=== PATIENT | male | born 1955 ===

== ENCOUNTER 2024-12-13 09:49 | Outpatient (AMB) | payer OTHER, SELFPAY ==
--- NOTE | 2024-12-13 10:03 | MHC.OFFVIS ---
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 He is a patient of . 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 Underwent adjuvant BCG therapy - therapy limited secondary to side effects Cystoscopy - 10/14 NAD, trilobar hypertrophy prostate Imaging - CT urogram 08/10 bladder lesions, upper tract normal Cytology - 09/14 atypical, Urovysion - abnormal likely preemptively change Review of Systems Const Denies chills and Denies fever(s) Card Reports no additional complaints and Denies syncope Resp Denies cough GI Denies abdominal pain and Denies heartburn Reports as per HPI and Denies change in libido Neuro Denies syncope Psych Denies change in libido Endo Denies change in libido Physical Exam Const General: cooperative, healthy appearing, comfortable and no acute distress Orientation/consciousness: patient oriented x3 HEENT Face and sinus: Yes normal facial exam Mouth: moist mucous membranes Neck Neck: Yes normal visual inspection, Yes full ROM and Yes trachea midline Chest Chest palpation & inspection: normal inspection of the chest Resp Effort & Inspection: normal respiratory effort, able to speak in complete sentences and no respiratory distress GI Inspection: Yes normal to inspection Back/Spine/Pelvis Cervical Spine: normal cervical lordosis Thoracic/Lumbar Spine: thoracic and lumbar spine normal to inspection Skin General skin exam: no rashes or lesions noted Neuro General: patient oriented x3, gait normal, tone normal and moves all extremities Extrem General: Yes normal to inspection and Yes capillary refill normal Results AMB Urinalysis, Automated UA Leukoctes 0 Daniel/uL Last Edit by OCTAVIO Wright on 12/13/24 10:28 UA Nitrite Negative Last Edit by OCTAVIO Wright on 12/13/24 10:28 UA Urobilinogen 0.2 mg/dL [facility] on 12/13/24 10:28 UA Protein 0 mg/dL Last Edit by Tammy Walsh [facility] on 12/13/24 10:28 UA pH 6.0 Last Edit by Tammy Walsh [facility] on 12/13/24 10:28 UA Blood 0 Willy/uL Last Edit by Tammy Walsh [facility] on 12/13/24 10:28 UA Specific [place] 1.015 Last Edit by Tammy Walsh [facility] on 12/13/24 10:28 UA Ketone Last Edit by Tammy Walsh [facility] on 12/13/24 10:28 UA Bilirubin 0 mg/dL Last Edit by Tammy Walsh [facility] on 12/13/24 10:28 UA Glucose 0 mg/dL Last Edit by Tammy Walsh [facility] on 12/13/24 10:28 Results Reviewed Results Reviewed: Laboratory Last Values Urine pH (Auto) 6.0 12/13/24 10:28 Specific [place] (Auto) 1.015 12/13/24 10:28 Urine Protein (Auto) 0 mg/dL 12/13/24 10:28 Glucose (UA)(Auto) 0 mg/dL 12/13/24 10:28 Urine Blood (Auto) 0 Willy/uL 12/13/24 10:28 Urine Nitrite (Auto) Negative 12/13/24 10:28 Urine Bilirubin (Auto) 0 mg/dL 12/13/24 10:28 Urine Urobilinogen (Auto) 0.2 mg/dL 12/13/24 10:28 Leukocyte Esterase (Auto) 0 Daniel/uL 12/13/24 10:28 Assessment & Plan Assessment & Plan (1) Bladder cancer: Code(s): C67.9 - Malignant neoplasm of bladder, unspecified Category: Medical Plan Repeat fish today Need CT urogram Orders: Orders FISH Bladder Cancer Today C67.9 - Malignant neoplasm of bladder, unspecified AMB Urinalysis Automated Today Z13.9 - Encounter for screening, unspecified CT urogram 6 Months C67.9 - Malignant neoplasm of bladder, unspecified Patient Instructions: This note is constructed using voice recognition software. While every effort has been made to ensure accuracy land planner errors may have been included. Imaging studies, laboratory and physical exam results were discussed and reviewed in detail. No major barriers to patient understanding were identified. An opportunity to ask questions regarding the treatment plan was provided. All questions were answered. The patient expressed understanding and agreement with the above treatment plan. The patient is aware they should contact our office by phone for worsening of their current condition or the appearance of new urologic symptoms. Compliance is encouraged with any medications and followup testing that is ordered. It is a privilege to participate in the urologic care of your patient. If you have any questions or concerns regarding treatment for the above conditions, or other urologic issues, please do not hesitate to contact me. The office telephone contact is [phone]. Sincerely, Dr Rafael Win MD, [facility] - Urology Compassionate Specialist Care for the Genitourinary System Coding Level of Care Code New Pt Level 4 (77768) Diagnoses Bladder cancer C67.9
--- OUTSIDE RECORDS SUMMARY | 2024-12-13 11:50 | XMS_ITS | Encounter Summary ---
Author Organization [employer] Address [address] [place] [address] [address] [place] [address] Care Team Providers Care Infection Control Rn Name Role Phone Unavailable Primary Care Provider Unavailabl e Encounter Details Date Type Department Care Team (Latest Contact Info) Description 06/12/2021 Abstract [facility] CONVERSIONS Dental, Provider, DDS Social History Tobacco Use Types Packs/Day Years Used Date Smoking Tobacco: Never Assessed Sex and Gender Information Value Date Recorded Sex Assigned at Male 01/20/2022 10:34 AM EDT Legal Sex Male 10:34 AM EDT Gender Identity Male 01/20/2022 10:34 AM EDT Sexual Orientation Straight 01/20/2022 10 :34 AM EDT documented as of this encounter Plan of Treatment Not on file documented as of this encounter Visit Diagnoses Not on filedocumented in this encounter
--- OUTSIDE RECORDS SUMMARY | 2024-12-13 11:50 | XMS_ITS | Clinical Summary ---
Author Organization [facility] Address [address] [place] [address] Phone Care Team Providers Care Manager Embalmer Funeral Director Name Role Phone Susan Olivarez MD Primary Care Provider [phone] Allergies Active Allergy Reactions Criticality Noted Date Comments Cat Dander 01/16/2023 Pollen Extracts 01/16/2023 Medications fexofenadine (CHENG) 60 mg tablet Take 1 tablet (60 mg total) by mouth 1 (one) time each day. 01/20/20 23 Active cholecalciferol (VITAMIN D-3) 50 mcg (2,000 unit) tablet Take 1 tablet (2,000 Units total) by mouth 1 (one) time each day. 01/13/20 23 Active ibuprofen (ADVIL,MOTRIN) 600 mg tablet Take 1 Tablet by mouth every 6 hours as needed for Pain. 07/17/19 23 Active betamethasone, augmented, (DIPROLENE-AF) 0.05 % cream Apply 3 times a day to affected area 04/17/19 23 Active triamcinolone (NASACORT) 55 mcg nasal inhaler 1 Inhaler by Nasal route daily as needed (nasal congestion/all ergies). 12/15/19 21 Active acetaminophen (TYLENOL) 325 mg tablet Take 2 tablets (650 mg total) by mouth every 8 (eight) hours if needed. 12/15/19 21 Active blood-glucose meter kit Use to check blood glucose daily as directed 07/09/19 19 Active FREESTYLE LANCETS MISC Use to check blood glucose daily 07/09/19 19 Active triamcinolone (KENALOG) 0.1 % ointment Apply twice daily x 2 weeks to thin lesions , then daily x 2 weeks, then 2-3 times a week as needed. Do not use on face, underarms, groin, breasts, or buttocks. 08/19/19 24 Active metoprolol succinate (TOPROL-XL) 50 mg 24 hr tablet Take 1 tablet (50 mg total) by mouth 1 (one) time each day. 90 each 3 09/09/19 25 026 Active losartan (COZAAR) 25 mg tabletIndications :Hyperlipidemia, unspecified,Prese nce of automatic (implantable) cardiac defibrillator Take 1 tablet (25 mg total) by mouth 1 (one) time each day. 90 each 3 09/09/19 25 026 Active atorvastatin (LIPITOR) 20 mg tablet Take 1 tablet (20 mg total) by mouth at bedtime. 90 each 3 09/09/19 25 026 Active blood sugar diagnostic (FreeStyle Lite Strips) test strip Use as instructed 100 each 1 12/08/19 25 Active blood sugar diagnostic (FreeStyle Lite Strips) test strip Use to check blood glucose once daily 07/29/19 20 025 Discontin ued(Reord er) Active Problems Problem Noted Date Diagnosed Date Pacer at end of battery life 03/03/2024 Dyslipidemia 01/25/2024 Assessment & Plan (03/01/2024 11:11 AM EST): Very well-controlled lipid profile on current dose statin with diabetes. Continue lipitor at current dose. COVID-19 05/29/2022 Overview (01/25/2024): 05/12/22 ([facility] ER) HFrEF (heart failure with re duced ejection fraction) ([facility]/HCC V24, CMS/HCC V28) 01/30/2022 Overview (03/01/2024): Nonischemic cardiomyopathy Normal pharmacologic nuclear stress test 03/2015 Persistently reduced LVEF despite GDMT [facility] BiV ICD with recovery of LVEF back to normal Assessment & Plan (03/01/2024 11:10 AM EST): The patient denies cardiorespiratory symptoms. His thoracic impedance is on continues on a a relative downward trend, but he denies any symptoms. As such, will not make any adjustments to his medications at this time. Consideration could be given for transitioning his ARB to Arni inhibitor if his thoracic impedance continues on the lower side. For now though, continue beta-nalini and ARB. His device has reached SUSY. As such, he will be scheduled for a routine generator change. This procedure is discussed with the patient and his with the use of the butcher helper. All questions have been answered. Risks/benefits/alternatives discussed including but not limited to infection, pain, and bleeding. Patient understands and agrees and wishes to proceed with generator change. Patient scheduled for pre-procedure labs and chest x ray as per protocol. Discussed with patient that the leads will be evaluated at the time of generator change. If needed, they may be changed or revised. If clinically appropriate, their device may be upgraded as well. They understand for any procedure beyond a generator change of their current device, they will remain in the hospital overnight. He plans to travel to [place] to see his daughter after the new year. I have asked that he travel after he has his device generator change and his first in office check. The patient and his understand and agree. I spoke to the scheduling team to try to work him in as quickly as reasonably possible so as not to delay his travel BPH (benign prostatic hyperplasia) 10/19/2020 Congenital renal cyst 10/19/2020 Bladder cancer ([facility] V24, [facility] V28) 2020 Overview (01/25/2024): DX 08/2020, restage bx09/2020 [facility] Nocturnal hypoxemia 05/24/2020 Nasal congestion 04/09/2020 Diet-controlled diabetes yaz litus ([facility] V24, [facility] V28) 02/27/2020 Obstructive sleep apnea 04/29/2019 Overview (01/25/2024): [facility] Polysomnogram: Date 04/24/2019; Wt 175#; BMI 30; SE 66%; SM 62%; REM 3%; RDI 57 (AHI 46), REM (RDI 96 - AHI 88), Central apneas 0; Obstructive apneas 5; Mixed apneas 0; hypopneas 205; RERAs 53; average oxygen saturation 93% (lowest 83% - with some saturations <88% for 5% or more of study); PLMs 18. Prestudy ESS 9; 0/4 RLS symptoms. - Obstructive Sleep Apnea - severe; mostly hypopneas; with some sleep related hypoventilation by 2019 polysomnogram. 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 Triamcinolone cream has proven ineffective. Patient will follow-up with dermatology on May 06, as already scheduled. I advise he apply a dry nonadherent to the area. I did not see any surrounding cellulitis and therefore antibiotic therapy is not indicated at this time. Discussed signs or symptoms that warrant immediate reevaluation. He was asked to call with questions or concerns. He voiced understanding and agree with the above plan. Resolved Problems Problem Noted Date Diagnosed Date Resolved Date Nonischemic cardiomyopathy ( [facility] V24, [facility] V28) 07/20/2015 03/01/2024 Encounters Date Type Department Care Team Description 11/11/2024 5:35 PM EDT Ancillary Procedure [facility] Cardiology [facility] [address] [place] [address] 10/19/2024 7:30 PM EDT Ancillary Procedure [facility] [address] [place] [address] 09/12/2024 1:30 PM EDT Ancillary Procedure [facility] [address] [place] [address] from Last 3 Months Immunizations Name Administration Dates Next Due Influenza Quadravalent, MDCK , 0.5ml, with preservative (Flucelvax) 6mo and older 03/20/2017 Influenza trivalent, 0.5mL ( Fluad) 65yo and older 12/14/2020,01/05/2020,01/19/2019 Influenza trivalent, 0.5mL, preservative free (Fluarix; FluLaval; Fluzone) ages 6mo and older (Afluria) 3 years and older 01/10/2015,01/02/2014 Pneumococcal polysaccharide 23 valent (Pneumovax 23) 2yo and older 02/08/2016 Zoster Live 08/13/2016 Surgical History Surgery Date Site/Laterality Comments VASECTOMY PROCEDURE: HISTORICAL VASECTOMY Medical History Medical History Date Comments Dyslipidemia DX:Dyslipidemia Knee pain DX:Knee pain Postprandial abdominal bloating 05/28/2015 DX:Postprandial abdominal bloating History of tobacco use DX:Histor y of tobacco use; COMMENT: <5 yrs Microscopic hematuria DX:Microsc opic hematuria Prostate nodule DX:Prostate nodu le; COMMENT: dr grissom Newly diagnosed diabetes ([facility]/HCC V24, CMS/HCC V28) DX:Newly diagnosed diabetes (HCC) Abnormal CT scan, bladder 08/16/2020 DX:Abn ormal CT scan, bladder; COMMENT: [facility] Bladder tumor DX:Bladder tumor BPH (benign prostatic hyperplasia) 10/19/2020 DX:BPH (benign prostatic hyperplasia) Congenital renal cyst 10/19/2020 DX:Congeni vy renal cyst Family History Medical History Relation Name Comments Coronary artery disease Brother 1 Other: pulmonary tuberculosis Mother Autoimmune disease Neg Hx Breast cancer Neg Hx Colon cancer Neg Hx Diabetes Neg Hx Heart attack Neg Hx Heart failure Neg Hx Hyperlipidemia Neg Hx Hypertension Neg Hx Mental illness Neg Hx Prostate cancer Neg Hx Sleep apnea Neg Hx Thyroid disease Neg Hx Relation Name Status Comments Brother 1 Brother 2 Mother Social History Tobacco Use Types Packs/Day Years Used Date Smoking Tobacco: Former Cigarettes Q uit: 03/23/1984 Smokeless Tobacco: Never Alcohol Use Standard Drinks/Week Comments Yes 0 (1 standard drink = 0.6 oz pur e alcohol) occasional Sex and Gender Information Value Date Recorded Sex Assigned at Male 04/08/2024 7:50 AM EST Legal Sex Male 12:16 PM EST Gender Identity Male 04/08/2024 7:50 AM EST Sexual Orientation Straight 04/08/2024 7: 50 AM EST Obstetrics History Last Filed Vital Signs Vital Sign Reading Time Taken Comments Blood Pressure 140/82 09/08/2024 11:02 AM EDT Pulse 60 09/08/2024 11:02 AM EDT Temperature 36.6 C (97.8 F) 08/02/2024 10:59 AM EDT Respiratory Rate 14 08/02/2024 10:59 AM EDT Oxygen Saturation 97% 09/08/2024 11:02 AM EDT Inhaled Oxygen Concentration - - Weight 73 kg (161 lb) 08/02/2024 10:59 AM EDT Height 162.6 cm (5' 4 ) 08/02/2024 10:59 AM EDT Body Mass Index 27.64 08/02/2024 10:59 AM EDT Plan of Treatment Upcoming Encounters Date Type Department Care Team ([facility] st Contact Info) Description 02/23/2025 1:00 PM EST Office Visit Adult Medicine [facility] [address] [place] [address] Susan Olivarez MD [address] [place] [address] 04/25/2025 11:00 AM EST Ancillary Procedure [facility] Cardiology [facility] [address] [facility] [address] [place] [address] 09/06/2025 10:00 AM EDT Ancillary Procedure [facility] Cardiology [facility] [address] [facility] [address] [place] [address] Health Maintenance Due Date Last Done Comments Diabetes: Annual Foot Exam 10/27/1963 Diabetes: Annual Retina Eye Exam 10/27/1963 DTaP,Tdap,and Td Vaccines (1 - Tdap) 1972 RSV Immunization Adult Patients (1 - Risk 60-74 years 1-dose series) 2013 Zoster Vaccines (1 of 2) 10/08/2016 08/13/2016 Pneumococcal Vaccine: 50+ Years (2 of 2 - PCV) 02/07/2017 02/08/2016 Colorectal Cancer Screening: Colonoscopy 03/01/2022 Falls Risk Assessment 03/01/2022 Social Influencers of Health Screening 03/01/2022 Diabetes: Annual Urine Albumin-Creatinine Ratio (uACR) 01/13/2024 01/12/2023 Depression Screening 03/23/2024 COVID-19 Vaccine ( season) 2024 03/30/2021, 07/20/2020, 06/23/2020 Influenza Vaccine (#1) 2024 , 01/05/2020, 01/19/2019, Additional history exists Diabetes: Blood Sugar Control Test (HGBA1C) 02/02/2025 08/02/2024, 02/17/2023 Diabetes: Annual GFR (Glomerular Filtration Rate) 08/02/2025 08/02/2024, 03/28/2024, 02/22/2024, Additional history exists Hypertension/CHF/CAD Annual BMP Blood Test 08/02/2025 08/02/2024, 03/28/2024, 02/22/2024, Additional history exists Cholesterol Screening (Lipid Panel) 08/02/2029 08/02/2024, 11/07/2022 Hepatitis C Screening Completed 09/20/2013 Abdominal Aortic Aneurysm (AAA) Screen Completed 03/07/2019 HIB Vaccines Aged Out No longer eligi ble based on patient's age to complete this topic HPV Vaccines Aged Out No longer eligi ble based on patient's age to complete this topic Hepatitis A Vaccines Aged Out No long er eligible based on patient's age to complete this topic Hepatitis B Vaccines Aged Out No long er eligible based on patient's age to complete this topic IPV Vaccines Aged Out No longer eligi ble based on patient's age to complete this topic MMR Vaccines Aged Out No longer eligi ble based on patient's age to complete this topic Meningococcal ACWY Vaccine Aged Out N o longer eligible based on patient's age to complete this topic Meningococcal B Vaccine Aged Out No l onger eligible based on patient's age to complete this topic RSV Immunization Patients Under 20 months Aged Out No longer eligible based on patient's age to complete this topic Varicella Vaccines Aged Out No longer eligible based on patient's age to complete this topic Medical Devices Implanted Type Area Parts Expediter Device Identifier Shelf Expiration Date Model / Serial / Lot Abbt-Stju [id number] [place] Mp() [id number] Implanted:01/21 (Quantity not on file) Cardiac CHIEF CONTROLLER TOWER-D ICD [facility] [id number] QUADRA ASSURA MP(TM) / [id number] / Defib Icd Bi Vent Driscoll Hr Digital Strategist D - [id number] - [id number] Implanted:Qty: 1 on 04/08/2024 by Mary Mehta MD at [facility] Cardiac CHIEF CONTROLLER TOWER-D ICD Left: Chest Wall [facility] [id number] 09/19/2025 [id number] / [id number] / Abbt-Stju Driscoll Hf [id number] Implanted:03/23 (Quantity not on file) Cardiac CHIEF CONTROLLER TOWER-D ICD [facility] GALLANT HF [id number] / [id number] / Abbt-Stju [id number] Driscoll(Tm) Hf [id number] Implanted:03/23 (Quantity not on file) Cardiac CHIEF CONTROLLER TOWER-D ICD [facility] [id number] GALLANT(T M) HF / [id number] / Procedures Procedure Name Priority Date/Time Associated Diagnosis Comments CARDIAC DEVICE CHECK- REMOTE- MURJ Routine 11/11/2024 5:32 PM EDT CARDIAC DEVICE CHECK- REMOTE- MURJ Routine 10/19/2024 7:27 PM EDT CARDIAC DEVICE CHECK- REMOTE- MURJ Routine 09/12/2024 1:26 PM EDT COMPREHENSIVE METABOLIC PANEL Routine 08/02/2024 11:53 AM EDT Diet-controlled diabetes mellitus (CMS/HCC V24, CMS/HCC V28) Malignant neoplasm of urinary bladder, unspecified site (CMS/HCC V24, CMS/HCC V28) HEMOGLOBIN A1C Routine 08/02/2024 11:53 AM EDT Mycosis fungoides, unspecified body region (CMS/HCC V24, CMS/HCC V28) Diet-controlled diabetes mellitus (CMS/HCC V24, CMS/HCC V28) Malignant neoplasm of urinary bladder, unspecified site (CMS/HCC V24, CMS/HCC V28) LIPID PANEL WITH REFLEX TO DIRECT LDL Routine 08/02/2024 11:53 AM EDT Diet-controlled diabetes mellitus (CMS/HCC V24, CMS/HCC V28) Malignant neoplasm of urinary bladder, unspecified site (CMS/HCC V24, CMS/HCC V28) HM URINE ALBUMIN CREATININE RATIO Routine 01/12/2023 US ABDOMINAL AORTA REAL TIME SCREEN STUDY AAA Routine 03/07/2019 8:18 AM EST Personal history of nicotine dependence HM HEPATITIS C SCREENING Routine 09/20/2013 from Last 3 Months or Most Recently Relevant to Health Maintenance Results * Cardiac device check - Remote- MURJ (11/11/2024 5:32 PM EDT) Only the most recent of3 resultswithin the time period is included. Date Time Interrogation Session [id number] CV DEVICE CHECK Type Interrogation Session Remote Scheduled CV DEVICE CHECK Implantable Pulse Generator Parts Expediter [facility] CV DEVICE CHECK Implantable Pulse Generator Type CHIEF CONTROLLER TOWER-D CV DEVICE CHECK Implantable Pulse Generator Model [id number] Driscoll(TM) HF CV DEVICE CHECK Implantable Pulse Generator Serial Number [id number] CV DEVICE CHECK Implantable Pulse Generator Implant Date [id number] CV DEVICE CHECK Battery Remaining Percentage 90.00 CV DEVICE CHECK Battery Remaining Longevity 84.0 CV DEVICE CHECK Battery Voltage 2.990 CV D EVICE CHECK Battery RETAIL MAINTENANCE TECHNICIAN Trigger 2.620 CV DEVICE CHECK Battery Status Middle of Service CV DEVICE CHECK Capacitor Charge Time 9.000 CV DEVICE CHECK Ray Statistic RA Percent Paced 20.00 CV DEVICE CHECK Ray Statistic RV Percent Paced 96.00 CV DEVICE CHECK CHIEF CONTROLLER TOWER Statistic CHIEF CONTROLLER TOWER Percent Paced 96.00 CV DEVICE CHECK Atrial Tachy Statistic AT/AF [place] Percent 1.00 CV DEVICE CHECK Lead Channel Sensing Intrinsic Amplitude 3.500 CV DEVICE CHECK Lead Channel Setting Sensing Sensitivity 0.30 CV DEVICE CHECK Lead Channel Impedance Value 360 CV DEVICE CHECK Lead Channel Pacing Threshold Amplitude 0.375 CV DEVICE CHECK Lead Channel Pacing Threshold Pulse Width 0.5 CV DEVICE CHECK Lead Channel RA Pacing Threshold Date 2024-11-11 CV DEVICE CHECK Lead Channel Setting Pacing Amplitude 1.375 CV DEVICE CHECK Lead Channel Setting Pacing Pulse Width 0.5 CV DEVICE CHECK Lead Channel Sensing Intrinsic Amplitude 5.300 CV DEVICE CHECK Lead Channel Setting Sensing Sensitivity 0.30 CV DEVICE CHECK Lead Channel Impedance Value 390 CV DEVICE CHECK Lead Channel Pacing Threshold Amplitude 1.125 CV DEVICE CHECK Lead Channel Pacing Threshold Pulse Width 0.5 CV DEVICE CHECK Lead Channel RV Pacing Threshold Date 2024-11-11 CV DEVICE CHECK Lead Channel Setting Pacing Amplitude 2.125 CV DEVICE CHECK Lead Channel Setting Pacing Pulse Width 0.5 CV DEVICE CHECK Lead Channel Impedance Value 860 CV DEVICE CHECK Lead Channel Pacing Threshold Amplitude 0.875 CV DEVICE CHECK Lead Channel Pacing Threshold Pulse Width 1.0 CV DEVICE CHECK Lead Channel Pacing Threshold Date 2024-11-11 CV DEVICE CHECK Lead Channel Setting Pacing Amplitude 1.375 CV DEVICE CHECK Lead Channel Setting Pacing Pulse Width 1.0 CV DEVICE CHECK Ray Setting Mode (NBG Code) DDDR CV DEVICE CHECK Ventricular chambers paced during CHIEF CONTROLLER TOWER pacing. BiV CV DEVICE CHECK Ray Setting Lower Rate Limit 60 CV DEVICE CHECK Ray Setting AT Mode Switch Rate 180 CV DEVICE CHECK Ray Setting Maximum Tracking Rate 120 CV DEVICE CHECK Ray Setting Maximum Sensor Rate 120 CV DEVICE CHECK Ray Setting PAV Delay 150 CV DEVICE CHECK Ray Setting SHAYY Delay 120 CV DEVICE CHECK CHIEF CONTROLLER TOWER LV-RV Delay 30 CV D EVICE CHECK Therapy Statistic Recent Shocks Delivered 0 CV DEVICE CHECK Therapy Statistic Recent Shocks Aborted 0 CV DEVICE CHECK Therapy Statistic Recent ATP Delivered 0 CV DEVICE CHECK Shock Measured Impedance 59 CV DEVICE CHECK Zone Setting Type Category VT CV DEVICE CHECK Rate 160 CV DEVICE CHECK Zone Setting Status On CV DEVICE CHECK Zone ID 1 CV DEVICE CHECK Zone Setting Type Category VT CV DEVICE CHECK Zone Setting Status Inactive CV DEVICE CHECK Zone ID 2 CV DEVICE CHECK Zone Setting Type Category VF CV DEVICE CHECK Rate 200 CV DEVICE CHECK Therapies 34.0J,37.8J,37.8J x 4 CV DEVICE CHECK Zone Setting Status On CV DEVICE CHECK Zone ID 3 CV DEVICE CHECK Date of Service 2024-12-05 CV DEVICE CHECK Anatomical Region Laterality Modality Device Interroga tion 11/11/2024 2:08 AM EDT Impressions 11/11/2024 5:09 PM EDT Heart Failure Diagnostic: Stable * Heart failure diagnostics assessed through the device * Status: Stable * No overt HF present Narrative Procedure Note Mary Mehta MD - 11/11/2024 IMPRESSION: Heart Failure Diagnostic: Stable * Heart failure diagnostics assessed through the device * Status: Stable * No overt HF present Mary Mehta MD CV IMPLANTABLE CARDIAC DEV ICE PROCEDURES Final Result * Lipid panel with reflex to direct LDL (08/02/2024 11:53 AM EDT) Cholesterol 164 0 - 200 mg/dL LAB CHEMISTRY METHOD 08/02/2024 4:14 PM EDT [facility] Triglycerides 118 0 - 150 mg/dL LAB CHEMISTRY METHOD 08/02/2024 4:14 PM EDT [facility] HDL 40 >=40 mg/dL LAB CHEMISTRY METHOD 08/02/2024 4:14 PM EDT [facility] LDL Calculated 100 0 - 100 mg/dL LAB CHEMISTRY METHOD 08/02/2024 4:14 PM EDT [facility] VLDL Cholesterol Rush 23.6 mg/dL LAB CHEMISTRY METHOD 08/02/2024 4:14 PM EDT [facility] Non HDL Chol. (LDL+VLDL) 124 <145 mg/dL LAB CHEMISTRY METHOD 08/02/2024 4:14 PM EDT [facility] Chol/HDL Ratio 4.1 0.0 - 4.4 LAB CHEMISTRY METHOD 08/02/2024 4:14 PM T [facility] Blood Venous blood specimen / Unknown Venipuncture / Unknown 08/02/2024 11:53 AM EDT 08/02/2024 11:53 AM EDT us Slick ZIMMERMAN LAB BLOOD ORDERABLES Fin al Result [facility] [address] [place] [address], [place] [phone] * Hemoglobin A1c (08/02/2024 11:53 AM EDT) Hemoglobin A1C 6.0 <6.5 % LAB CHEMISTRY METHOD 08/02/2024 10:[address] [facility] Mean Bld Glu Estim. 126 mg/dL LAB CHEMISTRY METHOD 08/02/2024 10:[address] [facility] Blood Venous blood specimen / Unknown Venipuncture / Unknown 08/02/2024 11:53 AM EDT 08/02/2024 11:53 AM EDT us Slick ZIMMERMAN LAB BLOOD ORDERABLES Fin al Result [facility] [address] [place] [address], * Comprehensive metabolic panel (08/02/2024 11:53 AM EDT) Sodium 140 133 - 145 mmol/L LAB CHEMISTRY METHOD 08/02/2024 4:[address] [facility] Potassium 4.2 3.5 - 5.5 mmol/L LAB CHEMISTRY METHOD 08/02/2024 4:[address] [facility] Chloride 105 96 - 110 mmol/L LAB CHEMISTRY METHOD 08/02/2024 4:[address] [facility] CO2 28 21 - 32 mmol/L LAB CHEMISTRY METHOD 08/02/2024 4:[address] [facility] Anion Gap 7 3 - 11 LAB CHEMISTRY METHOD 08/02/2024 4:[address] [facility] Glucose 81 70 - 100 mg/dL LAB CHEMISTRY METHOD 08/02/2024 4:[address] [facility] BUN 17 5 - 25 mg/dL LAB CHEMISTRY METHOD 08/02/2024 4:[address] [facility] Creatinine 0.87 0.70 - 1.30 mg/dL LAB CHEMISTRY METHOD 08/02/2024 4:[address] [facility] eGFR 93 >=60 mL/min/1. 73m2 LAB CHEMISTRY METHOD 08/02/2024 4:[address] [facility] Comment:Calculation based on the Chronic Kidney Disease Epidemiology Collaboration (CKD-EPI) equation refit without adjustment for race. BUN/Creatinine Ratio 19.5 LAB CHEMISTRY METHOD 08/02/2024 4:[address] [facility] Calcium 9.4 8.5 - 10.5 mg/dL LAB CHEMISTRY METHOD 08/02/2024 4:[address] [facility] AST (SGOT) 27 10 - 42 unit/L LAB CHEMISTRY METHOD 08/02/2024 4:[address] [facility] ALT (SGPT) 28 10 - 60 unit/L LAB CHEMISTRY METHOD 08/02/2024 4:[address] [facility] Alkaline Phosphatase 79 42 - 121 unit/L LAB CHEMISTRY METHOD 08/02/2024 4:[address] [facility] Total Protein 7.5 6.0 - 8.0 g/dL LAB CHEMISTRY METHOD 08/02/2024 4:[address] [facility] Albumin 4.3 3.2 - 5.0 g/dL LAB CHEMISTRY METHOD 08/02/2024 4:[address] [facility] Total Bilirubin 0.9 0.0 - 1.4 mg/dL LAB CHEMISTRY METHOD 08/02/2024 4:[address] [facility] Blood Venous blood specimen / Unknown Venipuncture / Unknown 08/02/2024 11:53 AM EDT 08/02/2024 11:53 AM EDT us Slick ZIMMERMAN LAB BLOOD ORDERABLES Fin al Result [facility] [address] [place] [address], * Urine Albumin Creatinine Ratio (01/12/2023) Urine Albumin Creatinine Ratio abstracted Historical Provider HEALTH MAINTENANCE Final Result * ABDOMINAL AORTA REAL TIME SCREEN STUDY AAA (03/07/2019 8:18 AM EST) Anatomical Region Laterality Modality Ultrasound 02/28/2019 11:4 1 AM EST Narrative 03/07/2019 8:28 AM EST EXAM: Abdominal aorta ultrasound, AAA screening HISTORY: History of tobacco use. AAA screening. COMPARISON: None FINDINGS: Proximal aorta measures 2.3 cm in maximal diameter. Mid aorta measures 1.8 cm. Distal aorta measures 1.6 cm. Proximal right common iliac artery measures 1 cm. Proximal left common iliac artery measures 0.9 cm. Minimal echogenicities along the vascular winters from atherosclerotic disease. IMPRESSION: IMPRESSION: No evidence of an abdominal aortic aneurysm. Procedure Note Juliet Gaming MD - 03/11/2022 EXAM: Abdominal aorta ultrasound, AAA screening HISTORY: History of tobacco use. AAA screening. COMPARISON: None FINDINGS: Proximal aorta measures 2.3 cm in maximal diameter. Mid aortameasures 1.8 cm. Distal aorta measures 1.6 cm. Proximal right common iliac artery measures1 cm. Proximal left common iliac artery measures 0.9 cm. Minimal echogenicities along thevascular winters from atherosclerotic disease. IMPRESSION: IMPRESSION: No evidence of an abdominal aortic aneurysm. 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 Expl anation Power of Applied Computer Science Professor 04/08/2024 7:54 AM hcp Advance Directives and Living Will 04/08/2024 7:54 AM life Health Care Decision (hx) 02/08/2016 AD GUERRA DIRECTIVE Health Care Decision (hx) 02/08/2016 AD GUERRA DIRECTIVE Health Care Decision (hx) 02/08/2016 AD GUERRA DIRECTIVE Health Care Decision (hx) 02/08/2016 AD GUERRA DIRECTIVE Health Care Decision (hx) 02/08/2016 AD GUERRA DIRECTIVE Health Care Decision (hx) 02/08/2016 AD GUERRA DIRECTIVE Health Care Decision (hx) 02/08/2016 AD GUERRA DIRECTIVE Health Care Decision (hx) 02/08/2016 AD GUERRA DIRECTIVE Health Care Decision (hx) 02/08/2016 AD GUERRA DIRECTIVE Health Care Decision (hx) 02/08/2016 AD GUERRA DIRECTIVE Health Care Decision (hx) 02/08/2016 AD GUERRA DIRECTIVE Health Care Decision (hx) 02/08/2016 AD GUERRA DIRECTIVE Health Care Decision (hx) 02/08/2016 AD GUERRA DIRECTIVE Health Care Decision (hx) 02/08/2016 AD GUERRA DIRECTIVE Care Teams Manager Embalmer Funeral Director Relationship Specialty Start Date End Date Susan Olivarez MD [address] [place] [address] PCP - General Internal Medicine 01/24/21
--- OUTSIDE RECORDS SUMMARY | 2024-12-13 11:50 | XMS_ITS | Clinical Summary ---
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 Avoid eyes and areas with thin skin (e.g. face, genitals, armpits) 454 g 3 0 Active Social History Tobacco Use Types Packs/Day Years Used Date Smoking Tobacco: Never Assessed Education Answer Date Recorded Are you interested in more education? Not on elza e 07/18/2022 Are you concerned about learning? Not on file 07/18/2022 No 07/18/2022 No 07/18/2022 Digital Access Answer Date Recorded No 08/16/2022 No 08/16/2022 No 08/16/2022 Reliable internet access at home? Not on file 08/16/2022 Device with a working camera? Not on file Sex and Gender Information Value Date Recorded Sex Assigned at Not on file Legal Sex Male 2:06 PM EST Gender Identity Not on file Sexual Orientation Not on file Last Filed Vital Signs Vital Sign Reading Time Taken Comments Blood Pressure 143/71 12/26/2019 7:28 AM EDT Pulse 60 12/26/2019 7:28 AM EDT Temperature 36.4 C (97.6 F) 12/26/2019 7:28 AM EDT Respiratory Rate 18 12/26/2019 7:28 AM EDT Oxygen Saturation - - Inhaled Oxygen Concentration - - Weight 80.3 kg (177 lb 0.5 oz) 12/26/2019 7:28 A M EDT Height 160.2 cm (5' 3.07 ) 12/26/2019 7:28 AM ED T Body Mass Index 31.29 12/26/2019 7:28 AM EDT Plan of Treatment Health Maintenance Due Date Last Done Comments Adult Td,Tdap Booster 1953 DEPRESSION SCREENING 1965 SMOKING Hx and SMOKELESS TOBACCO SCREENING 1966 HEPATITIS C SCREENING 10/27/1971 COLOGUARD 1998 COLONOSCOPY 1998 COLORECTAL CANCER SCREENING 1998 FIT TEST 1998 FOBT 1998 SIGMOIDOSCOPY 1998 VIRTUAL COLONOSCOPY 1998 ZOSTER VACCINES (2 of 3) 10/08/2016 08/13/2016 PNEUMOCOCCAL VACCINES (50+ years) (2 of 2 - PCV) 02/08/2017 02/09/2016 INFLUENZA VACCINE (#1) 2024 0, 01/19/2019, 03/20/2017, Additional history exists LIPID PANEL 11/17/2024 11/18/2019 COVID-19 VACCINE (3 - 2024- season) 2024 07/20/2020, 06/23/2020 RSV VACCINE (1 - 1-dose 75+ series) 2028 HEPATITIS A VACCINES Aged Out No long er eligible based on patient's age to complete this topic HIB VACCINES Aged Out No longer eligi ble based on patient's age to complete this topic MENINGOCOCCAL VACCINES (ACWY) Aged Out No longer eligible based on patient's age to complete this topic MENINGOCOCCAL VACCINES (B) Aged Out N o longer eligible based on patient's age to complete this topic Medical Devices Not on file Insurance [facility] [employer] MEDICARE REPLACEMENT [facility] MEDICARE REPLACEMENT [facility] MEDICARE [facility]PLACEMENT [facility] MEDICARE REPLACEMENT [facility] MEDICARE REPLACEMENT [facility] MEDICARE REPLACEMENT [facility] MEDICARE REPLACEMENT [facility] MEDICARE REPLACEMENT [facility] MEDICARE REPLACEMENT Care Teams Vineyard Worker Relationship Specialty Start Date End Date Nola Wills DO [address] [place] [address] PCP - General Internal Medicine 05/16/19 Additional Source Comments The information contained in this document represents components of the legal health record. It is not the complete legal health record.[facility]
--- OUTSIDE RECORDS SUMMARY | 2024-12-13 11:50 | XMS_ITS | Clinical Summary ---
Author Organization [employer] Address [address] [place] [address] [address] [place] [address] Care Team Providers Care Tutoring Assistant Name Role Phone Unavailable Primary Care Provider Unavailabl e Allergies No known active allergies Medications atorvastatin (Lipitor) 10 MG tablet Active metoprolol succinate XL (Toprol-XL) 25 MG 24 hr tablet Take 1 tablet by mouth at bed time. Active metoprolol tartrate (Lopressor) 50 MG tablet 03/03/2022 Active loratadine (Claritin) 10 MG tablet Take 1 tablet by mouth if needed each day. 12/14/2020 Active naproxen (Naprosyn) 250 MG tablet Active Social History Tobacco Use Types Packs/Day Years Used Date Smoking Tobacco: Former Cigarettes Passive Smoke Exposure: Past Smokeless Tobacco: Never Tobacco Cessation:Counseling Given: Not Answered Alcohol Use Standard Drinks/Week Comments Defer 0 (1 standard drink = 0.6 oz pur e alcohol) Sex and Gender Information Value Date Recorded Sex Assigned at Male 01/20/2022 10:34 AM EDT Legal Sex Male 10:34 AM EDT Gender Identity Male 01/20/2022 10:34 AM EDT Sexual Orientation Straight 01/20/2022 10 :34 AM EDT Last Filed Vital Signs Vital Sign Reading Time Taken Comments Blood Pressure 126/84 03/26/2022 9:26 AM EST Pulse 78 03/26/2022 9:26 AM EST Temperature - - Respiratory Rate - - Oxygen Saturation - - Inhaled Oxygen Concentration - - Weight - - Height - - Body Mass Index - - Plan of Treatment Health Maintenance Due Date Last Done Comments Anal Pap 1953 CT Colonography 1953 Colonoscopy 1953 Colorectal Cancer Screening 1953 Dental Oral Exam 1953 Dental X-Ray: Bitewings 1953 Dental X-Ray: Full Mouth 1953 Depression Screening 1953 FIT DNA/Cologuard 1953 FIT 1953 FOBT 1953 Lipid Panel 1953 SDOH Screening 1953 Sigmoidoscopy 1953 Alcohol/Substance Use Screening 1965 Hepatitis C Screening 10/27/1971 DTaP/Tdap/Td Vaccines (1 - Tdap) 1972 Hepatitis A Vaccines (1 of 2 - Risk 2-dose series) 1972 Hepatitis B Vaccines (1 of 3 - Risk 3-dose series) 2013 RSV Patients and Patients Aged 60 years or older (1 - Risk 60-74 years 1-dose series) 2013 Zoster Vaccines (1 of 2) 10/08/2016 08/13/2016 Pneumococcal Vaccine: 50+ Years (2 of 2 - PCV) 02/08/2017 02/09/2016 Dental Prophylaxis 09/24/2022 03/26/2022 Tobacco Screening 03/26/2023 03/26/2022 COVID-19 Vaccine ( season) 2024 03/30/2021, 07/20/2020, 06/23/2020 Influenza Vaccine (#1) 2024 , 01/05/2020, 01/19/2019, Additional history exists HIB Vaccines Aged Out No longer eligi [...] patient's age to complete this topic Meningococcal Vaccine Aged Out No lux yu eligible based on patient's age to complete this topic RSV under 20 months Aged Out No longe r eligible based on patient's age to complete this topic Rotavirus Vaccines Aged Out No longer eligible based on patient's age to complete this topic Procedures Procedure Name Priority Date/Time Associated Diagnosis Comments PROPHYLAXIS - ADULT Routine 03/26/2022 9:00 AM EST from Last 3 Months or Most Recently Relevant to Health Maintenance Insurance
--- OUTSIDE RECORDS SUMMARY | 2024-12-13 11:50 | XMS_ITS | Continuity of Care Document ---
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 Telephone [facility] [address] [place] [phone] Ecological Modeler: Jessica Monk Telephone Intake, Staff cs- appt 04/03/2017 Abstract [facility] Historical Conversion [address] [place] [address] Provider, Historical Conversion 04/02/2017 Abstract [facility] Historical Conversion [address] [place] [address] Provider, Historical Conversion Allergies Active Allergy Reactions Criticality Noted Date Comments Cat Dander Rhinorrhea 01/16/2023 Pollen Extracts Rhinorrhea 01/16/2023 Medications acetaminophen (TYLENOL) 500 mg tablet SMARTSI Tablet(s) By Mouth Every 4-6 Hours PRN 3 Active atorvastatin (LIPITOR) 20 mg tablet Take 1 tablet by mouth nightly. 4 Active Vitamin D3 50 mcg (2,000 unit) tablet SMARTSI Tablet(s) By Mouth Daily Active clobetasoL (TEMOVATE) 0.05% cream PLEASE SEE ATTACHED FOR DETAILED DIRECTIONS 4 Active clotrimazole (LOTRIMIN) 1% cream SMARTSIG:Topica l Twice Daily 4 Active levocetirizine (XYZAL) 5 mg tablet SMARTSI Tablet(s) By Mouth Daily 3 Active losartan (COZAAR) 25 mg tablet SMARTSI Tablet(s) By Mouth Daily Active metoprolol succinate XL (TOPROL XL) 50 mg tablet Take 1 tablet by mouth once a day. 4 Active mometasone (ELOCON) 0.1% cream Mometasone Furoate 0.1 % External Cream Quantity: 45; Refills: 0 Started 11-Jul-2015 Active 6 Active mupirocin (BACTROBAN) 2% ointment Apply topically to the affected area. 4 Active clobetasoL (TEMOVATE) 0.05% ointmentIndicati ons:Cutaneous T-cell lymphoma, unspecified body region (HCC) Apply twice daily x 2 weeks to thick lesions , then daily x 2 weeks, then 2-3 times a week as needed. Do not use on face, underarms, groin, breasts, or buttocks. 60 g 2 4 Active triamcinolone acetonide (KENALOG) 0.1% ointmentIndicati ons:Cutaneous T-cell lymphoma, unspecified body region (HCC) Apply twice daily x 2 weeks to thin lesions , then daily x 2 weeks, then 2-3 times a week as needed. Do not use on face, underarms, groin, breasts, or buttocks. 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 Family History Medical History Relation Name Comments Other Father Family History of hypertension Other Mother Family History of emphysema Relation Name Status Comments Father Mother Social History Smoking Status as of 12/13/2024 Tobacco Use Types Packs/Day Years Used Date Smoking Tobacco: Never Assessed Sex and Gender Information Value Date Recorded Sex Assigned at Not on file Legal Sex Male 3:37 AM EDT Gender Identity Not on file Sexual Orientation Not on file Last Filed Vital Signs Vital Sign Reading Time Taken Comments Blood Pressure 130/80 11/10/2013 10:21 AM EDT Pulse - - Temperature - - Respiratory Rate - - Oxygen Saturation - - Inhaled Oxygen Concentration - - Weight 84.4 kg (186 lb) 05/17/2015 10:17 AM EST Height 160 cm (5' 3 ) 10/31/2014 10:01 AM EDT Body Mass Index 32.95 10/31/2014 10:01 AM EDT Plan of Treatment Not on file Procedures * Due to [place] [employer] law, this organization might not be sharing negative HIV tests. Procedure Name Priority Date/Time Associated Diagnosis Comments LIPID PANEL W/REFLEX TO DIRECT LDL Routine 11/10/2013 11:11 AM EDT HEPATIC FUNCTION PANEL Routine 11/10/2013 11:11 AM EDT CBC Routine 11/10/2013 11:11 AM EDT Results * Due to [place] [employer] law, this organization might not be sharing negative HIV tests. * (ABNORMAL) Lipid Panel w/Reflex to Direct LDL (11/10/2013 11:11 AM EDT) Cholesterol-CFR 188 <200 mg/dL [facility] Triglyceride-Cfr 204(H) <150 mg/dL [facility] Cholesterol-HDL 37(L) 40 - 59 mg/dL [facility] Comment: Samples with triglycerides greater than 1200 mg/dL may give falsely decreased HDL results. Cholesterol, Non-HDL 151 mg/dL [facility] Cholesterol-LDL 110 <130 mg/dL [facility] Cholesterol-VLDL 41 mg/dL [facility] Cholesterol/HDL Ratio 5.1(H) <5.0 [facility] 11/10/2013 11:1 1 AM EDT 11/10/2013 4:55 PM EDT Xena Mart MD LAB BLOOD ORDERABLES Final Re sult Performing Organization Address [facility] Co de Phone Number [facility] [address] [place] [address], * CBC (11/10/2013 11:11 AM EDT) Wbc 7.6 4.3 - 10.3 th/mm3 [facility] Rbc 5.08 4.40 - 6.00 mil/mm3 [facility] Hgb 14.7 14.0 - 18.0 g/dL [facility] Hct 44.4 42.0 - 52.0 % [facility] Mcv 87.4 82.0 - 101.0 fl [facility] Mch 29.0 27.0 - 34.0 pg [facility] Mchc 33.2 31.5 - 36.0 g/dL [facility] Rdw 13.1 12.1 - 14.6 % [facility] Platelet Count 217 140 - 440 th/mm3 [facility] Mean Platelet Volume 10.5 7.6 - 11.6 fl [facility] 11/10/2013 11:1 1 AM EDT 11/10/2013 3:17 PM EDT Xena Mart MD LAB BLOOD ORDERABLES Final Re sult Performing Organization Address [facility] Co de Phone Number [facility] [address] [place] [address], * (ABNORMAL) Hepatic Function Panel (11/10/2013 11:11 AM EDT) Total Protein Blood 7.8 6.0 - 8.0 g/dL [facility] Albumin Blood 4.9(H) 3.5 - 4.8 g/dL [facility] Bilirubin Total 0.6 0.3 - 1.2 mg/dL [facility] Bilirubin Direct <0.1 0.0 - 0.4 mg/dL [facility] Alkaline Phosphatase 69 30 - 115 IU/L [facility] AST 28 10 - 40 IU/L [facility] ALT 30 10 - 40 IU/L [facility] 11/10/2013 11:1 1 AM EDT 11/10/2013 4:55 PM EDT us Xena Mart MD LAB BLOOD ORDERABLES Final Re sult [facility] [address] [place] [address], Visit Diagnoses Diagnosis Start Date Cutaneous T-cell lymphoma, unspecified body region (HCC) 08/19/2023 Care Teams Production Painter Relationship Specialty Start Date End Date Kiera Jones [address] [place] [phone] PCP - General Internal Medicine 06/15/23
--- OUTSIDE RECORDS SUMMARY | 2024-12-13 11:50 | XMS_ITS | Encounter Summary ---
Author Organization [facility] Address [address] [place] [address] [address] [place] [address] Care Team Providers Care Assistant Professor Of Religion Name Role Phone Unavailable Primary Care Provider Unavailabl e Encounter Details Date Type Department Care Team (Latest Contact Info) Description 09/06/2018 Abstract [facility] CONVERSIONS Dental, Provider, DDS Social History [...]
== END 2024-12-13 11:02 | disposition home or self-care (01) ==
PROVIDERS: PCP Internal Medicine; Visit Provider Urology
DX: Z13.9 Encounter for screening, unspecified (principal); C67.9 Malignant neoplasm of bladder, unspecified
CPT/HCPCS: 99204

== ENCOUNTER 2024-12-13 09:49 | Outpatient (REF) | payer OTHER, SELFPAY | END 2024-12-13 09:50 | disposition home or self-care (01) | LOC: HO.LNP 09:49 | PROVIDERS: PCP Internal Medicine; Visit Provider Urology | DX: C67.9 Malignant neoplasm of bladder, unspecified (principal); Z13.89 Encounter for screening for other disorder | CPT/HCPCS: 81003; 88121; 99202 ==